=== PATIENT | female | born 1960 | race Caucasian/White ===

== ENCOUNTER → 2017-06-25 | Outpatient (CLI) | payer OTHER | LOC: FIMAGING 09:11 | PROVIDERS: ATTEND Internal Medicine | DX: Z12.31 Encounter for screening mammogram for malignant neoplasm of breast (principal) | CPT/HCPCS: G0202 ==

== ENCOUNTER 2018-03-24 09:58 | Observation (INO) | payer OTHER ==
[2018-03-24 10:39] LABS: PLATELET COUNT 355 10^3/uL (150-400)
[2018-03-24] MEDS ORDERED: ASPIRIN 325 MG TAB PO ONE (10:43)
--- NOTE | 2018-03-24 10:51 | EDPHY ---
H & P Smoking Status: Never smoked Time Seen by Provider: 03/24/18 10:24 HPI/ROS: CHIEF COMPLAINT: Chest pain, back pain HISTORY OF PRESENT ILLNESS: 57-year-old female presents to the emergency department by private vehicle with her sister complaining of left-sided chest pain, left arm pain and upper back pain. The patient states that yesterday afternoon she went into SVT only about 5 times in her in life. She has an old prescription for verapamil 240 mg ER and she tried this twice last night. She states that finally early this morning around 2:00 a.m. The SVT abated. She states shortly thereafter she was a woken around 3:00 a.m. With pain in the left side of her chest and left arm. She also had severe upper back pain. She denies feeling short of breath. She feels that the pain in her chest has improved although has not resolved. She did try taking ibuprofen without relief. Denies abdominal pain or vomiting. She was feeling symptoms of "indigestion". She did not take any aspirin at home. She presents now to the emergency department was still continuing ongoing "achy feeling in her chest". She is postmenopausal. REVIEW OF SYSTEMS: Constitutional: No fever, no chills. Eyes: No double or blurry vision. ENT: No sore throat. Respiratory: No cough, no shortness of breath. Cardiac: Chest pain as above Gastrointestinal: No abdominal pain, vomiting or diarrhea. Genitourinary: No dysuria. Musculoskeletal: Upper back pain. No neck pain. Skin: No rashes. Neurological: No headache. (Bonnie Steel) Past Medical/Surgical History: History of SVT, history of dyslipidemia controlled with diet (Bonnie Steel M) Social History: (Bonnie Steel) Physical Exam: General Appearance: Alert, no distress. 97% on room air. 104/54, heart rate 59 Eyes: Pupils equal and round. Extraocular motions are all intact. ENT: Mouth: Mucous membranes moist. Respiratory: No wheezing, rhonchi, or rales, lungs are clear to auscultation. Unable to recreate pain with palpation to the anterior aspect of her chest. Cardiovascular: Regular rate and rhythm. Gastrointestinal: Abdomen is soft and nontender, no masses, no rebound or guarding, bowel sounds normal. Neurological: Alert and oriented x 3, cranial nerves II through XII grossly intact Skin: Warm and dry, no rashes. Musculoskeletal: Nontender to palpate along the cervical, thoracic or lumbar spine. Neck is supple. Extremities: Full range of motion and no peripheral edema. Psychiatric: Patient is oriented X 3, there is no agitation. (Bonnie Steel) Constitutional: Initial Vital Signs Temperature (C) 36.6 C 03/24/18 10:05 Heart Rate 59 L 03/24/18 10:05 Respiratory Rate 16 03/24/18 10:05 Blood Pressure 104/54 L 03/24/18 10:05 O2 Sat (%) 97 03/24/18 10:05 O2 Delivery Mode Room Air Allergies/Adverse Reactions: No Known Allergies Allergy (Unverified 03/24/18 10:04) Home Medications: Medication Instructions Recorded Ibuprofen [Motrin (*)] 400 mg PO DAILY PRN 03/24/18 Medical Decision Making - Diagnostics Imaging: I viewed and interpreted images myself - Diagnostics EKG Interpretation: 12 lead EKG is interpreted in [place] by emergency department physician. (Anahi Huynh) ED Course/Re-evaluation: 57-year-old female presents to the emergency department after having episode of SVT yesterday which is now resolved but now continues to have left-sided chest pain and back pain. Initial troponin was negative. D-dimer was negative. I doubt pulmonary embolism. She denies pleuritic chest pain, calf pain or swelling, recent travel. Because the patient continues to have ongoing left-sided achiness that she describes in her chest I recommended admission to the hospital for observation and serial EKGs and troponins. Patient verbalized understanding and agreed. The case was discussed with Dr. Anahi Huynh, secondary supervising physician, who did not directly evaluate the patient but agrees with treatment plan. (Bonnie Steel) The patient was evaluated and managed by the physician offset press assistant. I have reviewed this chart and I agree with the findings and plan of care as documented , as indicated by my signature. I am the secondary supervising physician. ( Anahi Huynh) Differential Diagnosis: Chest pain including but not limited to myocardial ischemia, pulmonary embolus, chest wall pain, pleural inflammation and pulmonary infectious causes. (Bonnie Steel) Other Provider: The patient was evaluated and managed by the physician offset press assistant. I have reviewed this chart and I agree with the findings and plan of care as documented , as indicated by my signature. I am the secondary supervising physician. ( Anahi Huynh) - Data Points Laboratory Results: Laboratory Results 03/24/18 10:24 03/24/18 10:24 Medications Given: Discontinued Medications Al Hydroxide/Mg Hydroxide (Maalox Susp) 30 ml PO ONCE ONE Stop: 03/24/18 14:20 Last Admin: 03/24/18 15:57 Dose: 30 ml Aspirin (Aspirin) 325 mg PO EDNOW ONE Stop: 03/24/18 10:44 Last Admin: 03/24/18 11:09 Dose: 325 mg Hyoscyamine Sulfate (Levsin, Hyomax-Sl) 0.25 mg PO ONCE ONE Stop: 03/24/18 14:20 Last Admin: 03/24/18 15:57 Dose: 0.25 mg Lidocaine (Lidocaine 2% Viscous) 15 ml PO ONCE ONE Stop: 03/24/18 14:20 Last Admin: 03/24/18 15:57 Dose: 15 ml Point of Care Test Results: Chemistry 03/24/18 10:29 POC Troponin I 0.00 ng/mL ng/mL (0.00-0.08) Departure - Departure Disposition: [facility] Inpatient Acute Clinical Impression: Chest pain Qualifiers: Chest pain type: unspecified Qualified Code(s): R07.9 - Chest pain, unspecified Condition: Good
[2018-03-24] MEDS ORDERED: LIDOCAINE 2% VISCOUS 15 ML UDCUP PO ONE (14:19)
[2018-03-24] MEDS ORDERED: HYOSCYAMINE SULFATE 0.125 MG TAB PO ONE (14:19)
[2018-03-24] MEDS ORDERED: MAG HYDROX/AL HYDROX/SIMETH 30 ML UDCUP PO ONE (14:19)
[2018-03-24] MEDS ORDERED: NITROGLYCERIN 0.4 MG BTL SL PRN (14:20)
--- NOTE | 2018-03-24 14:45 | GHP ---
DATE OF ADMISSION: 03/24/2018 CHIEF COMPLAINT: Chest/back pain. HISTORY OF PRESENT ILLNESS: Pleasant, 57-year-old female with history of SVT, diet controlled hyperl ipidemia, presenting by private vehicle with her sister complaining of chest and back pain. Yesterda y afternoon at 3 p.m. she went into SVT, felt her heart racing, which has happened only 5 times in he r life. She had an old prescription for verapamil 240 mg and took that twice. Says she flipped out of it at 1:45 this morning. She was very uncomfortable and restless throughout the night with some a tino chest discomfort. She awoke at 5:30, did her usual morning routine making lunch and activities , and developed a more intense pain in her chest that radiated to her left arm to her fingers. It wa s 8/10. No numbness or tingling or sweats. [place] nauseated and pain that felt like indigestion. The pain then went to her middle back and between her shoulder blades. She felt lightheaded. She felt so weak that she did go down to her knees twice, but did not black out. Took a nap at 7:30, woke at 9 still with the pain at 2/10, and thus presented to the ER. Exercises regularly with hiking and biking. She did a hike at [place]000 [place] on Thursday wi thout chest pain or shortness of breath. Denies fevers, chills, or sweats. No cough. REVIEW OF SYSTEMS: I completed a 10-point review of systems. Negative except as noted in HPI. PAST MEDICAL HISTORY: SVT; hyperlipidemia, diet controlled. PAST SURGICAL HISTORY: . FAMILY HISTORY: Cardiovascular disease, but no strokes or heart attacks. Both parents had provoked DVTs. SOCIAL HISTORY: Lives in [place]. No alcohol, tobacco, or illicits. Does not drink caffeine. PHYSICAL EXAMINATION: VITAL SIGNS: Temperature 36.6, blood pressure 121/64, heart rate , respirations 16, 94% on room air. GENERAL: She is well appearing, smiling, sitting in bed, no acut e distress. HEENT: PERRLA. Moist mucous membranes. CV: Regular rate and rhythm. No murmurs, gal lops, or rubs. No lower extremity edema. LUNGS: Clear. No crackles or wheezing. ABDOMEN: Soft, nontender, nondistended. Positive bowel sounds. : No Monae. MUSCULOSKELETAL: 5/5 upper, lower extremity strength. NEURO: 2 through 12 intact. PSYCH: Alert and oriented x3. LABS: WBC 7, hemoglobin 14, hematocrit 41, platelets 355. D-dimer 0.29. Sodium 135, potassium 4.5, chloride 103, carbon dioxide 22, BUN 12, creatinine 0.7, glucose 135, calcium 9.7. Troponin 0.00. TSH 1.5. Chest x-ray is personally reviewed by me: Hyperexpanded, no opacity or effusion. EKG pers onally reviewed: Normal sinus rhythm, low voltage throughout. ST flattening in lateral and anterior leads. No old to compare. ASSESSMENT AND PLAN: 1. Chest pain: Some concerning symptoms given radiation to back and arm. Personal risk factor of h yperlipidemia. She has a family history of cardiovascular disease. Her heart score is 3. D-dimer i s negative. Initial troponin and EKG negative for ischemia. Will repeat. Monitor her on telemetry. Consider exercise treadmill in the morning. We will discuss with her then. It is reasonable to be done as an outpatient if troponins remain negative. Trial a GI cocktail for indigestion. 2. Supraventricular tachycardia. Normal sinus rhythm now. Advised to avoid caffeine. 3. Diet: Regular. No caffeine. 4. Deep venous thrombosis prophylaxis. Lovenox. DISPOSITION: Warrants observation admission given acute chest pain requiring serial troponins, telem etry. Can likely discharge tomorrow if clinically stable. /[id number]/MODL
--- NOTE | 2018-03-24 15:36 | CPEKG ---
Test Reason : OPEN Blood Pressure : / mmHG Vent. Rate : 055 BPM Atrial Rate : 054 BPM P-R Int : 152 ms QRS Dur : 100 ms QT Int : 439 ms P-R-T Axes : 051 037 070 degrees QTc Int : 420 ms Sinus rhythm Confirmed by Anahi Huynh ([id number]) on 03/24/2018 3:35:33 PM Referred By: Confirmed By:Anahi Huynh
[2018-03-25 08:11] VITALS: BP 91/65
--- NOTE | 2018-03-25 10:54 | CPR ---
DATE OF PROCEDURE: 03/25/2018 PROCEDURE: Exercise treadmill test. INDICATION: The patient is a 57-year-old female with a history of SVT, who presented to the hospital with chest discomfort and left arm discomfort. Yesterday afternoon, she went into SVT, and vagal ma neuvers were unable to break her arrhythmia. At approximately 1:30 in the morning, she converted to sinus rhythm. She then developed left-sided chest discomfort and arm pain. This was associated with some nausea and lightheadedness. Her discomfort resolved on its own within a few hours. She denies any history of hypertension, hyperlipidemia, diabetes, family history of premature coronary artery d isease, or tobacco use. PROCEDURE IN DETAIL: Consent was obtained and the patient was placed on continuous telemetry. Her r esting EKG revealed normal sinus rhythm with 1 PVC. Her blood pressure at rest was 102/76 with an ox ygen saturation of 97%. She exercised on the treadmill for 10 minutes without any associated symptom s. She remained in normal sinus rhythm with rare PVCs. Within the first stage of exertion, she did have T-wave changes in the anterior leads, but this resolved within 2-3 minutes. The remainder of th e test was without ST changes. Her blood pressure peaked at 168/80 and returned to baseline within 5 minutes of recovery. PLAN: Victoria treadmill score of 10. This is a low-risk exercise treadmill test. /[id number]/MODL
--- NOTE | 2018-03-25 11:09 | GDS ---
DISCHARGE DIAGNOSES: 1. Chest pain. 2. Supraventricular tachycardia. HPI: A 57-year-old female with history of SVT, diet-controlled hyperlipidemia, presenting with her s ister with chest and back pain yesterday. The day prior at 3 p.m., she went into SVT, felt her heart racing, which has happened only 5 times in her life. She had an old prescription for verapamil 240 mg that she took twice. She flipped out of it at 1:45 in the morning, but was very restless and unco mfortable through the night due to some aching chest discomfort. She woke up at 5:30 doing her usual morning routine and developed more intense chest pain that radiated to her left arm and to her back between her shoulder blades; it was 8/10. Denied numbness or sweats. [place] nauseated with some inges tion-like pain. She went down to her knees due to weakness twice, but did not black out. She took a nap, but still had the pain when she woke, so came to the ER. HOSPITAL COURSE BY PROBLEM: 1. Chest pain. Differential included ACS, PE, musculoskeletal, or GERD. Exercise treadmill was neg ative as well as a D-dimer. May have been secondary to her SVT or GERD. 2. SVT: She is now in normal sinus rhythm. Advised to avoid caffeine, alcohol, and other triggers. DISPOSITION: Patient stable for discharge home. NEW MEDICATIONS: None. FOLLOWUP: Her primary care physician. PHYSICAL EXAMINATION: VITAL SIGNS: Today, temperature 36.7, blood pressure 91/65, heart rate is in the 50s, respirations 18, 98% on room air. GENERAL: She is well appearing in no acute distress. HE ENT: PERRLA. Moist mucous membranes. CV: Bradycardic, but regular. No murmurs. No lower extremi ty edema. LUNGS: Clear. ABDOMEN: Soft, nontender, and nondistended. Positive bowel sounds. : No Monae. MUSCULOSKELETAL: 5/5 upper and lower extremity strength. PSYCH: Alert and oriented x3. TIME SPENT ON DISCHARGE: Greater than 30 minutes discussing stress test with Cardiology at bedside w ith patient on followup in discharge. /[id number]/MODL
--- NOTE | 2018-03-26 06:54 | CPEKG ---
Test Reason : OPEN Blood Pressure : / mmHG Vent. Rate : 059 BPM Atrial Rate : 059 BPM P-R Int : 165 ms QRS Dur : 082 ms QT Int : 464 ms P-R-T Axes : 076 040 056 degrees QTc Int : 460 ms Sinus rhythm Low voltage, extremity leads Confirmed by Bruce Bell ([id number]) on 03/26/2018 6:53:45 AM Referred By: Confirmed By:Bruce Bell
== END 2018-03-25 12:43 | disposition home or self-care (01) ==
LOC: F2W 13:27
PROVIDERS: ADMIT Internal Medicine; ATTEND Internal Medicine
DX: R07.9 Chest pain, unspecified (principal); I47.1 Supraventricular tachycardia
CPT/HCPCS: 71046; 93005; 93017; 99285; G0378; 84484-PO

== ENCOUNTER → 2018-06-28 | Outpatient (CLI) | payer OTHER | LOC: FIMAGING 15:58 | PROVIDERS: ATTEND Internal Medicine | DX: Z12.31 Encounter for screening mammogram for malignant neoplasm of breast (principal) ==

== ENCOUNTER 2019-01-03 08:49 | Day surgery (SDC) | payer OTHER | END 2019-01-03 17:55 | disposition home or self-care (01) | LOC: FSGY 08:49 ==